=== PATIENT | female | born 1940 | race Caucasian/White ===

== ENCOUNTER → 2016-08-11 | Outpatient (CLI) | payer MEDICARE ==
--- NOTE | 2016-08-13 16:12 | RADIOLOGY REPORT PS360 ---
.. DIG MAMM-SCREEN RUCHI W/CAD CAD Screening ORDERING PHYSICIAN : Rashaad Desouza MD PATIENT AGE: 76 years GENDER: Female COMPARISON: Previous bilateral digital mammograms: May 2015. July 2015. May 2013. Also film screen mammogram 2009 and 2008 INDICATION: Routine screening patient taking estrogen 76-year-old. Previous stereotactic biopsy deep superior right breast TECHNIQUE: Standard CC and MLO images were obtained. R2 CAD reviewed. Additional axillary cc view bilateral FINDINGS: Very dense breast bilaterally for age. This decreases sensitivity of mammography. RIGHT BREAST :In the superior right breast there is a area that appears more circumscribed in character;, this round area of density best seen on on cc view, & spans nearly 6 cm Diameter.. This is been present on studies dating back to 2008 2009 & only slightly more conspicuous on today's cc view. I suspect reflects stable dense circumscribed fibroglandular tissue although a stable benign fibrolipoma/fibroadenolipoma type feature could have similar appearance.. Doubt underlying cysts, given its mixed density on mammography. Ultrasound recommended to further survey this region Microcalcifications. There are some subtle progressing groupings of calcifications which would benefit from magnification views as well: The Area labeled B reflects a small collection of micro-calcifications in a somewhat ringlike distribution, at the deep breast just lateral to the large round area described above on cc view. This would benefit from magnification spot views when the patient returns... These magnification spot view should also include area labeled C which is most likely benign calcifications, probable vascular calcification or adenosis. LEFT BREAST: There is a similar somewhat somewhat slightly circumscribed round area of dense tissue superior left breast. Nearly 6 cm diameter Again it may merely be a round island of circumscribed stable glandular tissue,. 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 Ultrasound survey recommended here as well. There is actually very similar appearance dating back to at 2008, 2009, 2012 in both breast, this appearance is only slightly more apparent today than on recent last 2 years digital mammograms ------ IMPRESSION 1. Dense breast bilaterally, particularly for [id number] patient-. On estrogen. 2. Long-standing round somewhat circumscribed areas of relative breast density towards the deep superior right & left breast, again noted having present since 2009 and 2009 studies.. These regions are slightly more evident on today's mammograms & I would suggest a bilateral breast ultrasound to further evaluate . These areas May merely be asymmetric round islands of dense fibroglandular breast tissue .. Benign fibrolipoma/fibroadenolipoma type features could have similar appearance. Doubt underlying cyst Again BILATERAL breast ultrasound recommended. 2. Also Microcalcifications RIGHT breast warrant spot views when patient returns Right breast:.. Slight progressing small grouped calcifications at deep right breast which warrant magnification spot views. Area Labeled B is most notable. Also small cluster labeled C most likely benign calcification, but should be included on these magnification views . BI-RADS CATEGORY: 0_Incomplete: Need additional imaging. RECOMMENDED FOLLOWUP: USB ULTRASOUND-BREAST Bilateral Breast Ultrasound,... As well as magnification spot views RIGHT breast recommended. (A letter has been sent to the patient regarding results of the study.)
== END ==
LOC: RAD 16:00
DX: Z12.31 Encounter for screening mammogram for malignant neoplasm of breast (principal)
CPT/HCPCS: G0202

== ENCOUNTER → 2017-04-13 | Outpatient (CLI) | payer MEDICARE ==
--- NOTE | 2017-04-16 09:29 | RADIOLOGY REPORT PS360 ---
DIG MAMM-DX RUCHI W/CAD, US BREAST-RT COMPLETE W/AXILLA, US BREAST-LT COMPLETE W/AXILLA COMPARISON: 08/11/2016, 07/31/2015, ultrasound of 08/24/2016 INDICATION: Follow-up abnormal mammogram/breast biopsy ORDERING PHYSICIAN: RERE BROWN MD PATIENT AGE: 77 years TECHNIQUE: Bilateral diagnostic mammogram performed with bilateral breast ultrasound FINDINGS: There is very dense fibroglandular tissue bilaterally with bilateral benign-appearing calcifications.. The previously described cluster of calcifications in the deep aspect of the right breast have been removed. Other benign-appearing calcifications are noted. No suspicious appearing microcalcifications or masses. There are bilateral benign-appearing nodular opacities. A clip has been placed in the central aspect of the right breast from the previous biopsy and there is an additional clip in the deep upper aspect of the right breast. Left breast: Benign-appearing calcifications with very dense fibroglandular tissue. The rounded area of asymmetric density is once again noted in the mid aspect of the left breast which is unchanged probably related to fibroglandular tissue. Right breast ultrasound: Heterogeneous echogenicity from fibroglandular tissue. Probably benign hypoechoic area at 3:00 measuring 4 mm and may represent a complex cyst with enhanced through transmission of sound versus fibroglandular tissue not previously demonstrated. Previously noted 5 mm cyst at 5:00 is not demonstrated on today's exam. No suspicious nodules evident Left breast ultrasound: Heterogeneous echogenicity from fibroglandular tissue. No suspicious nodules evident IMPRESSION: Benign findings, no evidence of malignancy BI-RADS CATEGORY: 2_Benign RECOMMENDED FOLLOWUP: Screening mammogram July 2016 to the patient back on schedule. Correlation with physical exam is paramount in this patient with very dense breast tissue (A letter has been sent to the patient regarding results of the study.)
== END ==
LOC: RAD 12:40
DX: R92.8 Other abnormal and inconclusive findings on diagnostic imaging of breast (principal); N60.01 Solitary cyst of right breast
CPT/HCPCS: G0204